=== PATIENT | female | born 1960 | race Caucasian/White ===

== ENCOUNTER 2016-10-16 11:26 | Emergency (ER) | payer OTHER ==
[2016-10-16 12:26] LABS: RED BLOOD COUNT 4.78 M/UL (4.00-5.10); WHITE BLOOD COUNT 12.9 K/UL (4.5-11.0)
== END 2016-10-16 14:03 | disposition home or self-care (01) ==
LOC: ER1 11:26
PROVIDERS: Physician Assistant
DX: T63.441A Toxic effect of venom of bees, accidental (unintentional), initial encounter (principal); T78.3XXA Angioneurotic edema, initial encounter; Z90.49 Acquired absence of other specified parts of digestive tract; Y92.009 Unspecified place in unspecified non-institutional (private) residence as the place of occurrence of the external cause
CPT/HCPCS: 36415; 80053; 85025; 96361; 96365; 96375; 99283; J1200; J2930

== ENCOUNTER → 2020-10-04 | Outpatient (CLI) | payer OTHER ==
[~2020-10-04] MED LIST: ALL DAY ALLERGY10 M2 PO; CETIRIZINE HCL10 MG PO; COLACE 100MG C100 MG PO; IBUPROFEN600 MG PO; LORTAB 5-325 M1 EACH PO; METFORMIN HCL500 MG PO; ROBAXIN-750750 MG PO; ROPINIROLE HCL1 MG PO; THERATRUM COMP1 EAC1 PO; VOLTAREN100 GM TP
== END ==
LOC: EXRD 09:16
DX: R74.8 Abnormal levels of other serum enzymes (principal); K76.0 Fatty (change of) liver, not elsewhere classified
CPT/HCPCS: 76705

== ENCOUNTER → 2021-09-25 | Outpatient (CLI) | payer OTHER | LOC: US 08:36 | DX: K76.0 Fatty (change of) liver, not elsewhere classified (principal) | CPT/HCPCS: 76700 ==

== ENCOUNTER → 2022-01-15 | Outpatient (CLI) | payer OTHER | LOC: EXRD 13:37 | DX: N17.9 Acute kidney failure, unspecified (principal); K76.0 Fatty (change of) liver, not elsewhere classified | CPT/HCPCS: 76775 ==